=== PATIENT | female | born 1970 | race Caucasian/White ===

== ENCOUNTER 2023-07-27 10:25 | Emergency (ER) | payer OTHER, SELFPAY ==
--- NOTE | ~2023-07-27 | CT_ITS ---
EXAMINATION: CT facial & cervical spine wo DATE: 07/27/2023 12:08 INDICATION: Head injury TECHNIQUE: Computed tomography (CT) of the maxillofacial region and cervical spine was performed with out intravenous contrast. The dose-length product (DLP) was 403.75 mGy-cm. Automated exposure control and iterative reconstruction technique were employed. COMPARISON: None FINDINGS: MAXILLOFACIAL CT: No definite facial fracture is identified. There is soft tissue swelling of the nose. There is a 9 mm polyp or mucous retention cyst of the right maxillary sinus. Bone alignment is normal. The globes an d orbits are normal. CERVICAL SPINE CT: There is reversal of the normal cervical lordosis. There is moderate loss of intervertebral disc spac e height at C5-C6. There are 2 mm of retrolisthesis of C5 on C6. Alignment is otherwise normal. The v ertebral body heights are maintained. The odontoid process is intact. 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 IMPRESSION: 1. No facial fracture identified. 2. Mild to moderate cervical spondylosis without acute findings. Reviewed, dictated and finalized at location A.
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
[2023-07-27 10:19] VITALS: BP 157/73; PULSE 89; RESP 20; TEMP 36.6; O2SAT 100
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
== END 2023-07-27 14:09 | disposition home or self-care (01) ==
LOC: ANHED 13:55
PROVIDERS: Emergency Provider Physician Assistant; PCP Nurse Practitioner Family
DX: S00.33XA Contusion of nose, initial encounter (principal); Y04.2XXA Assault by strike against or bumped into by another person, initial encounter
CPT/HCPCS: 70450; 70486; 72125; 99284